=== PATIENT | female | born 1955 | race Caucasian/White ===

== ENCOUNTER 2018-01-21 09:25 | Day surgery (SDC) | payer OTHER ==
[~2018-01-21 09:25] MED LIST: CEFAZOLIN 2 GM/50 ML (PMX) 50 ML IVPB; PROPOFOL 200 MG INJ; SOD CHLORIDE 0.9% 1,000 ML IV
[2018-01-21 10:59] LABS: ADD MAN DIFF? NO
[2018-01-21] MEDS ORDERED: hydrALAzine 20 MG INJ (11:02)
[2018-01-21] MEDS: hydrALAzine 20 MG INJ IV ×2 (11:08→15:29)
[2018-01-21 11:19] LABS: BASOPHILS % 0.2 % (0.0-2.0); HEMATOCRIT 39.5 % (37.0-47.0); HEMOGLOBIN 13.7 g/dl (12.0-16.0); LYMPHOCYTES # 1.5 10^3/ul (0.8-2.9); LYMPHOCYTES % 14.3 % (15.0-51.0); MEAN CORPUSCULAR HEMOGLOBIN 30.8 pg (29.0-33.0); MEAN CORPUSCULAR HGB CONC 34.7 g/dl (32.0-37.0); MEAN CORPUSCULAR VOLUME 88.8 fl (82.0-101.0); MEAN PLATELET VOLUME 10.3 fl (7.4-10.4); MONOCYTE # 0.6 10^3/ul (0.3-0.9); NEUTROPHIL # 8.2 10^3/ul (1.6-7.5); PLATELET COUNT 260 10^3/UL (140-415); RED BLOOD COUNT 4.45 10^6/ul (4.20-5.40)
[2018-01-21 11:19] LABS: WHITE BLOOD COUNT 10.4 10^3/ul (4.8-10.8)
[2018-01-21 11:37] LABS: INR 0.95; PROTIME 12.8 Sec (11.9-14.9)
[2018-01-21 11:56] LABS: ALANINE AMINOTRANSFERASE 29 IU/L (13-69); ALBUMIN 4.5 g/dl (3.3-4.9); ALBUMIN/GLOBULIN RATIO 1.32; ALKALINE PHOSPHATASE 109 IU/L (42-121); ANION GAP 15 (8-16); ASPARTATE AMINO TRANSFERASE 21 IU/L (15-46); BILIRUBIN,INDIRECT 0.5 mg/dl (0-1.1); BILIRUBIN,TOTAL 0.5 mg/dl (0.2-1.3); CARBON DIOXIDE 31 mmol/L (21-31); CHLORIDE 101 mmol/L (97-110); GLUCOSE 217 mg/dl (70-220); TOTAL PROTEIN 7.9 g/dl (6.1-8.1)
[2018-01-21 11:57] LABS: SODIUM 144 mmol/L (135-144)
[2018-01-21 12:00] LABS: BLOOD UREA NITROGEN 24 mg/dl (7-20); CREATININE 0.99 mg/dl (0.44-1.00); POTASSIUM 3.1 mmol/L (3.5-5.1)
[2018-01-21] MEDS ORDERED: PROPOFOL 20 ML (14:27)
[2018-01-21] MEDS ORDERED: FENTAnyl 50 MCG/ML VIAL (14:27)
[2018-01-21] MEDS ORDERED: MIDAZOLAM 1 MG/ML 2 ML INJ (14:27)
[2018-01-21] MEDS ORDERED: LIDOCAINE 100 MG SYRINGE (14:27)
[2018-01-21] MEDS ORDERED: PHENYLephrine (100 MCG/ML) 5ML SYG (14:33)
[2018-01-21] MEDS: BUPIVACAINE 0.5% (SDV) 30 ML INJ (14:54)
[2018-01-21] MEDS ORDERED: BACITRACIN/POLYMYXIN 28.35 GM OINT TOP (14:58)
[2018-01-21] MEDS ORDERED: ONDANSETRON 4 MG INJ (15:00)
[2018-01-21] MEDS ORDERED: DEXAMETHASONE 4 MG/ML 1 ML INJ (15:00)
[2018-01-21] MEDS ORDERED: OXYCODONE/ACETAMINOPHEN (5/325) TAB PO ×2 (15:30)
[2018-01-21] MEDS ORDERED: KETOROLAC 30 MG INJ IV (15:30)
[2018-01-21] MEDS ORDERED: METOCLOPRAMIDE 10 MG INJ IV (15:30)
[2018-01-21] MEDS ORDERED: morphine (1 MG/ML) 10ML SYRINGE IV ×2 (15:30)
[2018-01-21] MEDS: morphine (1 MG/ML) 10ML SYRINGE IV ×2 (15:34→15:56)
[2018-01-21] MEDS: ONDANSETRON 4 MG INJ IV (15:56)
[2018-01-21] MEDS: INSULIN ASPART [NOVOLOG] 3 ML PEN SC (16:04)
== END 2018-01-21 17:10 | disposition home or self-care (01) ==
LOC: SDS 09:25
DX: N90.7 Vulvar cyst (principal); M19.90 Unspecified osteoarthritis, unspecified site; E11.9 Type 2 diabetes mellitus without complications; F41.9 Anxiety disorder, unspecified; E66.9 Obesity, unspecified; Z68.34 Body mass index [BMI] 34.0-34.9, adult; Z88.8 Allergy status to other drugs, medicaments and biological substances
CPT/HCPCS: 11421; 71045; 80053; 82962; 85025; 85610; 85730; 88305; 93005